=== PATIENT | female | born 1940 | race Caucasian/White ===

== ENCOUNTER 2019-04-14 11:02 | Inpatient (IN) | payer MEDICARE ==
[~2019-04-14] VITALS: Ht 157.5 cm; Wt 58.5 kg
[~2019-04-14 11:02] MED LIST: ASPI-1718 PO; CALC500T31 PO; HYDR2TAB6 PO; MEDR2.5T PO; METO100T14 PO; MOEX15TA2 PO; NIAC500T30 PO; PRE.625 PO; TRAM50TA1 PO
--- NOTE | 2019-04-14 11:04 | NUR ---
PATIENT WHEELCHAIR ASSISTED TO BED 10 AT THIS TIME.
--- NOTE | 2019-04-14 11:06 | NUR ---
DR. FREEMAN AT BEDSIDE EVALUATING PATIENT.
[2019-04-14 11:15] VITALS: BP 191/78
--- NOTE | 2019-04-14 11:15 | NUR ---
PT BIB DAUGHTER C/O FALL AND HITTING BACK OF HEAD AND NECK LAST NIGHT AND THIS MORNING. PT REPORTS 10/10 PAIN IN BACK OF HEAD AND NECK. NO BRUISING, REDNESS, SWELLING, OR DEFORMITY PRESENT. PT HAS HICCUPS X2 MONTHS THAT CAUSE LOSS OF SPEECH, BALANCE, AND CORDINATION THAT LAST ABOUT 1 SEC DURRING HICUP. PT IS HYPERTENSIVE WITH SYTOLIC BP AT 191. ER MD AT BEDSIDE. MEDHX:COPD, HTN
--- NOTE | 2019-04-14 11:41 | NUR ---
PT GOING TO CT AT THIS TIME.
[2019-04-14 11:42] LABS: BASOPHILS % (AUTO) 0.4 % (0.0-2.0); EOSINOPHILS # (AUTO) 0.2 K/uL (0-0.4); EOSINOPHILS % (AUTO) 2.8 % (0.0-4.0); HEMATOCRIT 35.4 % (36-48); HEMOGLOBIN 11.6 g/dL (12.0-16.0); LYMPHOCYTES % (AUTO) 11.7 % (20.5-51.1); MEAN CORPUSCULAR HEMOGLOBIN 29 pg (27-31); MEAN CORPUSCULAR HGB CONC 33 g/dL (33-37); MEAN CORPUSCULAR VOLUME 88.3 fL (80-94); MONOCYTES # (AUTO) 1.2 K/uL (0.8-1.0); MONOCYTES % (AUTO) 14.4 % (1.7-9.3); NEUTROPHILS # (AUTO) 5.9 K/uL (1.8-7.7); NEUTROPHILS % (AUTO) 70.7 % (42.2-75.2); PLATELET COUNT (AUTO) 193 K/uL (140-450); RED BLOOD CELL COUNT(AUTO) 4.01 MIL/uL (4.20-5.40); RED CELL DISTRIBUTION WIDTH 15.4 % (11.6-13.7); WHITE BLOOD COUNT (AUTO) 8.4 K/uL (4.8-10.8)
[2019-04-14 11:50] LABS: ANION GAP 14.3 (8-16); CARBON DIOXIDE 29.9 mmol/L (21-32); CHLORIDE 102 mmol/L (98-107); CREATININE 0.9 mg/dL (0.6-1.3); GLUCOSE 90 mg/dL (74-106); POTASSIUM 4.2 mmol/L (3.5-5.1); SODIUM SERUM 142 mmol/L (136-145); UREA NITROGEN, BLOOD 23 mg/dL (7-18)
[2019-04-14 12:19] LABS: ASPARTATE AMINOTRANSFERASE 21 U/L (15-37); LIPASE 109 U/L (73-393); TOTAL BILIRUBIN 0.4 mg/dL (0.0-1.0)
--- NOTE | 2019-04-14 12:22 | NUR ---
PT FELL IN RESTROOM WHILE GIVING URINE SAMPLE. PT AAOX4, COOPERATIVE, HAND CARE MANAGEMENT COORDINATOR STRONG/EQUAL, FACIAL SYMMETRY INTACT, GAIT UNSTEADY, SPEECH CLEAR. DELORIS BURKETT MADE AWARE. Addendum: 04/14/19 at 1340 by JU EMT LON WITNESSED FALL
[2019-04-14 12:24] LABS: BILIRUBIN,URINE NEGATIVE (NEGATIVE); BLOOD, URINE TRACE-L (NEGATIVE); COLOR,URINE YELLOW (YELLOW); LEUKOCYTE ESTERASE ,URINE 1+ (NEGATIVE); NITRITE, URINE NEGATIVE (NEGATIVE); UGLUCOSE NEGATIVE (NEGATIVE)
[2019-04-14 12:29] LABS: APPEARANCE,URINE SLIGHTLY HAZY (CLEAR)
[2019-04-14 12:30] LABS: RBC,URINE 0-5 /HPF (0-5)
[2019-04-14 12:41] LABS: BARBITURATE, URINE NEG. ng/ml (NEG <=200); BENZODIAZEPINE, URINE NEG. ng/mL (NEG <=200); CANNABINOID, URINE NEG. ng/mL (NEG <=50); COCAINE, URINE NEG. ng/mL (NEG <=300); OPIATE, URINE POS. ng/mL (NEG <=2000); PHENCYCLIDINE SCREEN,URINE NEG. ng/mL (NEG <=25)
[2019-04-14] MEDS ORDERED: VENL150C1 PO (13:28)
--- NOTE | 2019-04-14 13:34 | NUR ---
PT O2 SAT DROPPED TO 91, PROVIDED 1L OF O2 VIA NASAL CANNULA, PT NEW O2 SAT UP TO 95. PT DENIES SOB. RR EVEN, NON-LABORED, BREATH SOUNDS CLEAR THROUGHOUT. PT HAS HISTORY OF COPD, DENIES BEING ON 02 AT HOME.
--- NOTE | 2019-04-14 13:53 | NUR ---
PT GOING TO CT AT THIS TIME.
--- NOTE | 2019-04-14 14:52 | NUR ---
PT NASAL CANNULA REMOVED, PT O2 SAT STAYING AT 96%. PT DENIES SOB
--- NOTE | 2019-04-14 16:58 | NUR ---
PT IN BED, DAUGHTER AT BEDSIDE, PT HAS NOT BEEN HAVING HICUB ATTACKS, VSS. PT REPORTS PAIN AT 8/10 IN BACK OF HEAD AND NECK STATING "MY HEAD FEELS LIKE A WATERMELON". PT STATES THAT SHE IS ANXIOUS TO GO HOME.
--- NOTE | 2019-04-14 17:30 | NUR ---
PT STATES SHE WANTS TO USE THE RESTROOM, DOES NOT WANT TO USE BED PEOPLES, HAD HOUSEKEEPING BRING A BEDSIDE CAMODE, PT USED RESTROOM WITHOUT INCIDENCE.
--- NOTE | 2019-04-14 19:05 | NUR ---
REPORT RECIEVED FROM GABRIELLA SHARMA.
--- NOTE | 2019-04-14 19:10 | NUR ---
PT AGGRAVATED. INSISTED ON LEAVING FACILITY TO SMOKE. DAUGHTER AT BEDSIDE. PT INFORMED SHE IS UNSAFE TO AMBULATED AT THIS TIME. PT STATES SHE WILL REMAIN IN FACILITY. X2 SIDE RAILS UP. ER MD AWARE. CONTINUE TO MONITOR.
--- NOTE | 2019-04-14 20:00 | NUR ---
PT IN BED RESTING WITH EYES OPEN. ALERT TO NAME, PLACE, TIME AND EVENT. PT NOT TRYING TO GET OUT OF BED AT THIS TIME. CALM. VSS. X2 SIDE RAILS UP. ER MD AWARE. CONTINUE TO MONITOR.
--- NOTE | 2019-04-14 21:00 | NUR ---
PT IN BED RESTING WITH EYES OPEN. ALERT TO NAME, TIME PLACE AND EVENT. VSS. DAUGHTER AT BEDSIDE. CONTINUE TO MONITOR.
[2019-04-14 22:10] VITALS: BP 163/77
--- NOTE | 2019-04-14 22:10 | NUR ---
ARRIVE VIA GURNEY ESCORTED BY MARSHAL SHARMA ER NURSE TO ROOM 107A PT AMBULATED TO BED A. PT UNSTEADY IN HER GAIT. SHE IS AOX3 V/S FOLLOWS T 98.1 P 70 R 18 B/P 163/77 02 94% ON ROOM AIR. REPORT GIVEN AT BEDSIDE PT IN STABLE CONDITION.
--- NOTE | 2019-04-14 22:10 | NUR ---
REPORT GIVEN AND CARE TRANSFERED TO ECTOR SHARMA ROOM 107A. TRANSFERED VIA RNEY WITH VSS.
[2019-04-14] MEDS ORDERED: MAGNESIUM OXIDE 400 MG TAB PO PRN (22:20)
[2019-04-14] MEDS ORDERED: traMADol 50 MG TAB PO PRN (22:20)
[2019-04-14] MEDS ORDERED: ACETAMINOPHEN 650 MG SUPP RC PRN (22:20)
[2019-04-14] MEDS ORDERED: ZOLPIDEM 5 MG TAB PO PRN (22:20)
[2019-04-14] MEDS ORDERED: POTASSIUM CHLORIDE 10 MEQ TABER PO PRN (22:20)
[2019-04-14] MEDS ORDERED: SODIUM PHOSPHATE 118 ML ENEM RC PRN (22:20)
[2019-04-14] MEDS ORDERED: MORPHINE SULFATE 2 MG/ML SYR IVP PRN (22:20)
[2019-04-14] MEDS ORDERED: POTASSIUM CHLORIDE 40 MEQ, LIDOCAINE 1% 25 MG in NACL 0.9% 250 ML IV PRN (22:20)
[2019-04-14] MEDS ORDERED: diphenhydrAMINE 50 MG/ML VIAL IVP PRN (22:20)
[2019-04-14] MEDS ORDERED: BISACODYL 10 MG SUPP RC PRN (22:20)
[2019-04-14] MEDS ORDERED: IPRATROPIUM 0.02% 0.5 MG/2.5 ML NEBU INH PRN (22:20)
[2019-04-14] MEDS ORDERED: cloNIDine 0.1 MG TAB PO PRN (22:20)
[2019-04-14] MEDS ORDERED: HYDROcodone/APAP 5/325 MG 1 TAB TAB PO PRN (22:20)
[2019-04-14] MEDS ORDERED: MAG SULF 2000 MG/WATER PREMIX 50 ML IV PRN (22:20)
[2019-04-14] MEDS ORDERED: guaiFENesin DM 200/20 MG-10 ML 10 ML UDC PO PRN (22:20)
[2019-04-14] MEDS ORDERED: ONDANSETRON 4 MG/2 ML VIAL IVP PRN (22:20)
[2019-04-14] MEDS ORDERED: ALUMINUM HYD/MAG/SIMETHICONE 30 ML UDC PO PRN (22:20)
[2019-04-14] MEDS ORDERED: DOCUSATE SODIUM 250 MG GELCAP PO PRN (22:20)
[2019-04-14] MEDS ORDERED: ALBUTEROL 0.083% 2.5 MG/3 ML NEBU INH PRN (22:20)
[2019-04-14] MEDS ORDERED: ACETAMINOPHEN 325 MG TAB PO PRN (22:20)
[2019-04-15] MEDS ORDERED: cefTRIAXone 1,000 MG VIAL ONE (00:17)
[2019-04-15] MEDS: NACL 0.9% 1,000 ML IV SCH ×3 (00:38→20:24)
--- NOTE | 2019-04-15 01:00 | NUR ---
ROCEPHIN HUNG ORDERED. IV SITE INTACT AND FLUSHED PATENT. PT C/O BACK PAIN AND WAS GIVEN ORDERED TRAMADOL . PT C/O THAT AT HOME SHE TAKES 100MG TRAMADOL PO/PRN Q TID. PT BROUGHT IN MEDS FROM HOME TO SHOW PRIMARY RN. CALLED SIDE PANEL HANGER [facility] MD SIDE PANEL HANGER, DR. PANDA, SHE OK TO CHANGE TRAMADOL ORDER MATCH HER ORDER FORM HOME (100MG PO/PRN TID) AND TO VERIFY HER NORCO REQUEST WITH DR. SY IN THE AM.
[2019-04-15] MEDS: LORazepam 2 MG/ML VIAL IVP PRN ×2 (01:01→08:38)
[2019-04-15] MEDS ORDERED: traMADol 50 MG TAB PO PRN (03:35)
--- NOTE | 2019-04-15 07:25 | NUR ---
REPORT GIVEN TO RN AM SHIFT AT BEDSIDE FOR CONTINUITY OF CARE, PT IN STABLE CONDITION.
--- NOTE | 2019-04-15 07:32 | NUR ---
RECEIVED REPORT FROM CLOTH WINDER NURSE. PT AAOX4, LYING IN BED. RESPIRATIONS EVEN AND UNLABORED ON RA. RADIAL PULSE 67, EVEN AND REGULAR. IV ON RT WRIST 20 GAUGE RUNNING IVF PER ORDER, DRESSING CLEAN, DRY AND INTACT. BOWEL SOUNDS ACTIVE. NO C/O PAIN AT THIS TIME. NO EDEMA NOTED. SKIN COLOR IS APPROPRIATE TO ETHNICITY, WARM TO TOUCH. NOTED RT ELBOW AND LT ARM SKIN TEAR, DRESSING CLEAN, DRY AND INTACT. PT IS ON FALL PRECAUTIONS. YELLOW SIGN POSTED ON DOOR, YELLOW GOWN AND YELLOW WRISTBAND IN PLACE. SAFETY MEASURES IN PLACE, BELONGINGS AND CALL LIGHT WITHIN REACH, BED ALARMS ON AND BED ON LOW POSITION. REVIEWED POC WITH PT, PT VERBALIZED UNDERSTANDING. WILL CONTINUE TO MONITOR.
[2019-04-15] MEDS: VENLAFAXINE XR 75 MG CAPER PO SCH (08:35)
[2019-04-15] MEDS: NIACIN 500 MG TAB PO SCH (08:35)
[2019-04-15] MEDS: METOPROLOL SUCCINATE 50 MG TABER PO SCH (08:36)
[2019-04-15] MEDS: CALCIUM CARBONATE 500 MG TAB PO SCH (08:36)
[2019-04-15] MEDS: LISINOPRIL 20 MG TAB PO SCH (08:36)
[2019-04-15] MEDS: ASPIRIN 81 MG TAB.CHEW PO SCH (08:37)
--- NOTE | 2019-04-15 08:38 | NUR ---
PT VERBALIZED THAT SHE HAS PAIN AND ANXIETY. PT MEDICATED PER ORDER. WILL CONTINUE TO MONITOR.
[2019-04-15] MEDS ORDERED: CALCIUM CARBONATE 500 MG PO SCH (09:00)
[2019-04-15] MEDS ORDERED: ESTROGENS CONJUGATED 0.625 MG TAB PO SCH (09:00)
[2019-04-15] MEDS ORDERED: MOEXIPRIL HCL 15 MG PO SCH (09:00)
--- NOTE | 2019-04-15 09:30 | NUR ---
PT SITTING UP IN BED. NO SIGNS OF DISTRESS AT THIS TIME. RESPIRATIONS EVEN AND UNLABORED ON RA.
[2019-04-15] MEDS: HYDROcodone/APAP 5/325 MG 1 TAB TAB PO PRN ×2 (11:14→16:50)
--- NOTE | 2019-04-15 11:17 | NUR ---
PT C/O MILD ITCHING. GIVEN BENADRYL PER ORDER. CALL LIGHT WITHIN REACH. WILL CONTINUE TO MONITOR.
[2019-04-15] MEDS: NICOTINE TRANSD SYS 7 MG/24 HR PATCH TD SCH (11:43)
--- NOTE | 2019-04-15 12:20 | NUR ---
PT RESTING IN BED, NO SIGNS OF DISTRESS AT THIS TIME. DAUGHTER AT BEDSIDE. WILL CONTINUE TO MONITOR.
--- NOTE | 2019-04-15 12:45 | NUR ---
Dr. Rogers at bedside to examine pt. Pt's daughter at bedside as well.
--- NOTE | 2019-04-15 13:11 | NUR ---
PATIENT HAS BEEN SCREENED AND CATEGORIZED MODERATE NUTRITION RISK. PATIENT WILL BE SEEN WITHIN 3-5 DAYS OF ADMISSION. 04/17/19FARHEEN EASON MBA, RD
--- NOTE | 2019-04-15 13:50 | NUR ---
PAGED DR. VAUGHAN TO UPDATE REGARDING PT'S POC. AWAITING CALL BACK.
--- NOTE | 2019-04-15 14:22 | NUR ---
SPOKE WITH DR. VAUGHAN. RECEIVED ORDERS TO D/C TRANSFER TO [facility]. PT SCHEDULED TO HAVE EEG TOMORROW AM.
--- NOTE | 2019-04-15 14:40 | NUR ---
EEG PROCEDURE TAKING PLACE. PT SHOWS NO SIGNS OF DISTRESS AT THIS TIME.
[2019-04-15 16:00] VITALS: BP 155/53
--- NOTE | 2019-04-15 19:20 | NUR ---
ENDORSED PT TO LAMP SHADE JOINER NURSE. NO SIGNS OF DISTRESS AT THIS TIME.
--- NOTE | 2019-04-15 19:21 | NUR ---
RECEIVED REPORT FROM DAY SHIFT NURSE HARJIT-RN AT BEDSIDE. PT RESTING IN BED, AOX4, ON ROOM AIR WITH RIGHT AC #20G RUNNING NS @50ML/HR. DISCUSSED PLAN OF CARE AND PT VERBALIZED UNDERSTANDING. NO S/S OF RESPIRATORY DISTRESS OR DISCOMFORT NOTED AT THIS TIME. LEFT ARM AND RIGHT ELBOW SKIN TEAR NOTED. BED IN LOWEST POSITION, BED BREAKS ON, BOTH SIDE RAILS UP AND FALL PRECAUTIONS IN PLACE. BEDSIDE TABLE AND CALL LIGHT ARE WITHIN REACH. WILL CONTINUE TO MONITOR.
[2019-04-15 20:00] VITALS: BP 136/45
--- NOTE | 2019-04-15 20:00 | NUR ---
VITAL SIGNS TAKEN AND TOLERATED WELL. PT C/O HEADACHE- WILL ADMINISTER PAIN MEDICATION. NO S/S OF RESPIRATORY DISTRESS OR DISCOMFORT NOTED AT THIS TIME. WILL CONTINUE TO MONITOR.
[2019-04-15] MEDS: oxyCODONE 5 MG TAB PO PRN (20:12)
--- NOTE | 2019-04-15 20:12 | NUR ---
ROXICODONE GIVEN FOR HEADACHE AND TOLERATED WELL. NO S/S OF RESPIRATORY DISTRESS OR DISCOMFORT NOTED AT THIS TIME. WILL CONTINUE TO MONITOR.
--- NOTE | 2019-04-15 20:24 | NUR ---
NEW BAG OF IVF HUNG AND TOLERATED WELL. NO S/S OF RESPIRATORY DISTRESS OR DISCOMFORT NOTED AT THIS TIME. WILL CONTINUE TO MONITOR.
--- NOTE | 2019-04-15 22:00 | NUR ---
PT RESTING SITTING IN A CHAIR WATCHING TV. NO S/S OF RESPIRATORY DISTRESS OR DISCOMFORT NOTED AT THIS TIME. WILL CONTINUE TO MONITOR.
--- NOTE | 2019-04-15 23:04 | NUR ---
SCHEDULED MEDICATION ROCEPHIN GIVEN AND TOLERATED WELL. NO S/S OF RESPIRATORY DISTRESS OR DISCOMFORT NOTED AT THIS TIME. WILL CONTINUE TO MONITOR.
[2019-04-16] VITALS: BP_SYST 136; BP_SYST 185; BP_DIAS 45; BP_DIAS 63
--- NOTE | 2019-04-16 | NUR ---
VITAL SIGNS TAKEN AND TOLERATED WELL. ELEVATED BP NOTED- WILL MEDICATE. PT ALSO C/O INSOMNIA, WILL MEDICATE. NO S/S OF RESPIRATORY DISTRESS OR DISCOMFORT NOTED AT THIS TIME. WILL CONTINUE TO MONITOR.
--- NOTE | 2019-04-16 00:09 | NUR ---
CATAPRES GIVEN FOR BP AND AMBIEN GIVEN FOR INSOMNIA. PT TOLERATED WELL. NO S/S OF RESPIRATORY DISTRESS OR DISCOMFORT NOTED AT THIS TIME. WILL CONTINUE TO MONITOR.
--- NOTE | 2019-04-16 01:39 | NUR ---
CATAPRES REASSESSMENT BP 159/57, HR 55. NO S/S OF RESPIRATORY DISTRESS OR DISCOMFORT NOTED AT THIS TIME. WILL CONTINUE TO MONITOR.
--- NOTE | 2019-04-16 02:00 | NUR ---
PT SLEEPING IN BED. NO S/S OF RESPIRATORY DISTRESS OR DISCOMFORT NOTED AT THIS TIME. WILL CONTINUE TO MONITOR.
--- NOTE | 2019-04-16 04:00 | NUR ---
PT CONTINUES TO SLEEP IN BED. NO S/S OF RESPIRATORY DISTRESS OR DISCOMFORT NOTED AT THIS TIME. WILL CONTINUE TO MONITOR.
[2019-04-16 07:06] LABS: BASOPHILS # (AUTO) 0.1 K/uL (0.00-0.22); BASOPHILS % (AUTO) 1.1 % (0.0-2.0); EOSINOPHILS # (AUTO) 0.3 K/uL (0-0.4); EOSINOPHILS % (AUTO) 3.8 % (0.0-4.0); HEMATOCRIT 30.5 % (36-48); HEMOGLOBIN 9.9 g/dL (12.0-16.0); LYMPHOCYTES # (AUTO) 1.3 K/uL (2.5-16.5); LYMPHOCYTES % (AUTO) 16.9 % (20.5-51.1); MEAN CORPUSCULAR HEMOGLOBIN 29 pg (27-31); MEAN CORPUSCULAR HGB CONC 33 g/dL (33-37); MEAN CORPUSCULAR VOLUME 89.4 fL (80-94); MONOCYTES # (AUTO) 1.3 K/uL (0.8-1.0); MONOCYTES % (AUTO) 16.8 % (1.7-9.3); NEUTROPHILS # (AUTO) 4.8 K/uL (1.8-7.7); NEUTROPHILS % (AUTO) 61.4 % (42.2-75.2); PLATELET COUNT (AUTO) 149 K/uL (140-450); RED BLOOD CELL COUNT(AUTO) 3.41 MIL/uL (4.20-5.40); RED CELL DISTRIBUTION WIDTH 15.5 % (11.6-13.7); WHITE BLOOD COUNT (AUTO) 7.7 K/uL (4.8-10.8)
--- NOTE | 2019-04-16 07:10 | NUR ---
RECEIVED BEDSIDE REPORT FROM PROFESSIONAL BUILDER NURSE. PT IS ASLEEP AT THIS TIME, NO S/S OF ACUTE DISTRESS OR SOB NOTED. PT IS ON ROOM AIR, SKIN INTACT. IV SITE NOTED ON R AC, 20 G, INFUSING NS 50 ML/HR. BEDSIDE COMMODE IS NEAR BY, FALL PRECAUTIONS ARE IN PLACE. CALL LIGHT IS WITHIN REACH. WILL CONTINUE TO MONITOR PT.
[2019-04-16 07:19] LABS: ALBUMIN 3.3 g/dL (3.4-5.0); ANION GAP 12.2 (8-16); ASPARTATE AMINOTRANSFERASE 16 U/L (15-37); CHLORIDE 107 mmol/L (98-107); CREATININE 0.9 mg/dL (0.6-1.3); GLUCOSE 85 mg/dL (74-106); POTASSIUM 4.2 mmol/L (3.5-5.1); SODIUM SERUM 144 mmol/L (136-145); TOTAL BILIRUBIN 0.1 mg/dL (0.0-1.0); UREA NITROGEN, BLOOD 17 mg/dL (7-18)
[2019-04-16 08:00] VITALS: BP 161/69
[2019-04-16] MEDS: NIACIN 500 MG TAB PO SCH (09:29)
[2019-04-16] MEDS: VENLAFAXINE XR 75 MG CAPER PO SCH (09:30)
[2019-04-16] MEDS: CALCIUM CARBONATE 500 MG TAB PO SCH (09:30)
[2019-04-16] MEDS: LISINOPRIL 20 MG TAB PO SCH (09:30)
[2019-04-16] MEDS: METOPROLOL SUCCINATE 50 MG TABER PO SCH (09:31)
[2019-04-16] MEDS: ASPIRIN 81 MG TAB.CHEW PO SCH (09:31)
[2019-04-16] MEDS: oxyCODONE 5 MG TAB PO PRN (09:32)
[2019-04-16] MEDS: NICOTINE TRANSD SYS 7 MG/24 HR PATCH TD SCH (09:32)
[2019-04-16] MEDS: LORazepam 2 MG/ML VIAL IVP PRN (09:42)
--- NOTE | 2019-04-16 10:00 | NUR ---
ADMINISTERED SCHEDULED AM MEDS. PT REPORTED TO ME THAT HER ARMS AND FACE FEEL "REALLY HOT", LIKE A HOT FLASH, AFTER TAKING THESE MEDICATIONS AND THAT SHE FELT THE SAME WAY LAST NIGHT AFTER SHE TOOK HER ORDERED MEDICINE. SHE SAYS THAT THIS FEELING GOES AWAY EVENTUALLY. SHE DENIES ANY SOB, AND THERE ARE NO AREAS OF SWELLING NOTED. DR SY WAS NOTIFIED OF THIS AND WILL SEE THE PATIENT THIS AM.
--- NOTE | 2019-04-16 14:02 | NUR ---
SPOKE WITH DR SY ABOUT PT'S DISCHARGE, HE SAYS TO WAIT FOR DR VAUGHAN TO SEE PT'S AND HER EEG BEFORE DISCHARGING HER.
--- NOTE | 2019-04-16 15:35 | NUR ---
PT HAS DC'D. PT WAS GIVEN DC INSTRUCTIONS AND PRESCRIPTION, VERBALIZED UNDERSTANDING. IV SITE AND WRIST BANDS WERE REMOVED. PT LEFT WITH ALL HER BELONGINGS IN STABLE CONDITION, WITH HER DAUGHTER.
== END 2019-04-16 15:35 | disposition home or self-care (01) | DRG 312 ==
LOC: MED 11:02 → MTU 21:39
PROVIDERS: ADMIT Internal Medicine Pulmonary Disease; ATTEND Internal Medicine Pulmonary Disease
DX: R55 Syncope and collapse (principal); F17.210 Nicotine dependence, cigarettes, uncomplicated; F40.240 Claustrophobia; I10 Essential (primary) hypertension; H53.2 Diplopia; J44.9 Chronic obstructive pulmonary disease, unspecified; G89.29 Other chronic pain; M54.5 Low back pain; Z88.5 Allergy status to narcotic agent; F07.81 Postconcussional syndrome
CPT/HCPCS: 36415; 70450; 71045; 72125; 80053; 80305; 81001; 82550; 83690; 84484; 85025; 87081; 87086; 94640; 95816; 97116; 97161-GP; 99285; G0482; J0696; J1200; J2060; J7030; J7060; J7613; Q0092